=== PATIENT | male | born 1945 | race Caucasian/White ===

== ENCOUNTER 2016-06-13 15:43 | Emergency (ER) | payer MEDICARE, OTHER ==
--- NOTE | ~2016-06-13 | EKG ---
PATIENT: DANIELE FINCH UNIT #: [id number] Ventricular Rate: 65 BPM Atrial Rate: 65 BPM P-R Interval: 186 ms QRS Duration: 116 ms Q-T Interval: 416 ms QTC Calculation(Bezet): 432 ms P [place]: 89 degrees Calculated R [place]: -102 degrees Calculated T [place]: 18 degrees Diagnosis Line: Normal sinus rhythm Diagnosis Line: Right ventricular hypertrophy Diagnosis Line: Poor R wave progression questionable lead position Diagnosis Line: or body habitus Diagnosis Line: Abnormal ECG Diagnosis Line: When compared with ECG of 20-MAY-2014 16:18, Diagnosis Line: Questionable change in initial forces of Lateral Diagnosis Line: leads Diagnosis Line: Nonspecific T wave abnormality has replaced Diagnosis Line: inverted T waves in Inferior leads Diagnosis Line: Confirmed by IDA ARELLANO MD ([id number]) on 06/16/2016 Diagnosis Line: 9:37:47 AM INTERPRETING MD: EILEEN GARCIA
[~2016-06-13 15:43] MED LIST: ALPRAZOLAM PO; ASPIRIN EC81 M1 PO; ASPIRIN81 M1 PO; ASPIRIN81 M2 PO; AZO BLADDER CO300 MG; BENTYL20 MG PO; COREG12.5 MG PO; DILANTIN KAPSE100 MG PO; DILANTIN PO; DOCUSATE SODIU100 MG PO; DOXYCYCLINE PO; FISH OIL 1,2001 EAC2 PO; FLEXERIL10 MG PO; IMDUR-ER30 M1 PO; IMDUR-ER30 MG PO; IMDUR30 MG PO; LACTULOSE10 G/15 M1 PO; LISINOPRIL PO; LISINOPRIL30 MG PO; LISINOPRIL5 MG PO; MULTI VITAMIN1 EACH PO; NORCO 10-325 TA1 TAB PO; OMEGA 3-6-9 11200 M1 PO; PEPCID AC20 M2 PO; PHENERGAN25 MG PO; PHENOBARB PO; PHENOBARBITAL30 M1 PO; PHENOBARBITAL32.4 MG PO; PLAVIX PO; PROTONIX; SAW PALMETTO PO; SIMVASTATIN40 MG PO; VOLTAREN75 MG PO; ZOCOR PO
[2016-06-13 15:54] LABS: BASOPHIL% 0.3 % (0-2.5); EOSINOPHIL# 0.1 X10e3 (0-0.7); EOSINOPHIL% 2.4 % (0.0-7.0); HEMATOCRIT 40.2 % (38.0-50.0); HEMOGLOBIN 13.5 gm/dL (13.0-16.0); LYMPHOCYTE# 1.3 X10e3 (1.0-3.5); LYMPHOCYTE% 26.6 % (17.0-45.0); MEAN CELL VOLUME 94.8 FL (83-96); MEAN CORPUSCULAR HEMOGLOBIN 31.9 PG (28-34); MEAN CORPUSCULAR HGB CONC 33.6 g/dL (30-36); MEAN PLATELET VOLUME 8.6 FL (6.5-11.5); MONOCYTE# 0.4 X10e3 (0-1.0); MONOCYTE% 8.1 % (3.0-12.0); NEUTROPHIL# 3.1 X10e3 (1.5-7.1); NEUTROPHIL% 62.6 % (40-75); PLATELET COUNT 159 X10e3 (140-420); RED BLOOD COUNT 4.24 X10e (3.90-5.60); RED CELL DISTRIBUTION WIDTH 13.5 % (11.0-15.5); WHITE BLOOD COUNT 4.9 X10e3 (4.0-10.5)
[2016-06-13 15:57] LABS: DIFF IND NO
[2016-06-13 15:58] LABS: URINE SOURCE CLEAN CATCH
[2016-06-13 16:00] LABS: URINE APPEARANCE CLEAR; URINE BILIRUBIN NEG (NEG); URINE BLOOD NEG (NEG); URINE COLOR YELLOW; URINE GLUCOSE NEG (NORM); URINE KETONE NEG (NEG); URINE LEUKOCYTE ESTERASE NEG (NEG); URINE NITRATE NEG (NEG); URINE PROTEIN NEG (NEG); URINE SPECIFIC GRAVITY <=1.005 (1.003-1.035); URINE UROBILINOGEN 0.2 MG/DL (NORM)
[2016-06-13 16:01] LABS: MICRO INDICATED? NO
[2016-06-13 16:05] LABS: POC - CKMB 1.2 ng/mL (0.0-7.9); POC - TROPONIN <0.05 ng/mL (<=0.05)
[2016-06-13 16:11] LABS: ALBUMIN SERUM 3.7 g/dL (3.5-5.0); ALKALINE PHOSPHATASE 112 U/L (32-92); ALT (SGPT) 16 U/L (10-40); AMYLASE 30 U/L (0-46); AST (SGOT) 19 U/L (10-42); BILIRUBIN,TOTAL 0.4 mg/dL (0.2-2.0); BLOOD UREA NITROGEN 15 mg/dL (9-23); BUN/CREATININE RATIO 18.75; CALCIUM SERUM 8.7 mg/dL (8.4-10.2); CARBON DIOXIDE 28 mmol/L (22-31); CHLORIDE 107 mmol/L (100-111); CREATININE SERUM 0.8 mg/dL (0.6-1.4); GLOM FILT RATE Estimated 91.8 mL/min (>60); GLUCOSE FASTING 121 mg/dL (70-110); LIPASE 30 U/L (22-51); MAGNESIUM 1.9 mg/dL (1.6-3.0); POTASSIUM 3.6 mmol/L (3.5-5.1); PROTEIN TOTAL SERUM 6.6 g/dL (6.0-8.3); SODIUM 141 mmol/L (135-145)
[2016-06-13 16:15] LABS: BILIRUBIN, DIRECT <0.1 mg/dL (0.0-0.2); BILIRUBIN,INDIRECT 0.3 mg/dL (0.0-0.9)
== END 2016-06-13 16:52 | disposition home or self-care (01) ==
LOC: SED 15:43
PROVIDERS: Emergency Medicine
DX: R19.7 Diarrhea, unspecified (principal); R11.0 Nausea; K21.9 Gastro-esophageal reflux disease without esophagitis; Z87.442 Personal history of urinary calculi; Z79.82 Long term (current) use of aspirin; Z79.899 Other long term (current) drug therapy; Z88.1 Allergy status to other antibiotic agents; Z88.2 Allergy status to sulfonamides
CPT/HCPCS: 36415; 80048; 80076; 81003; 82150; 82553; 83690; 83735; 84484; 85025; 93005; 96374; 96375; 99284; J2405

== ENCOUNTER 2016-06-30 15:13 | Emergency (ER) | payer MEDICARE, OTHER ==
[2016-06-30] MEDS ORDERED: ZOFRANODT (15:19)
[2016-06-30 15:56] LABS: MICRO INDICATED? NO; URINE APPEARANCE CLEAR; URINE BILIRUBIN NEG (NEG); URINE BLOOD NEG (NEG); URINE COLOR YELLOW; URINE GLUCOSE NEG (NORM); URINE KETONE NEG (NEG); URINE LEUKOCYTE ESTERASE NEG (NEG); URINE NITRATE NEG (NEG); URINE PROTEIN NEG (NEG); URINE SOURCE CLEAN CATCH; URINE SPECIFIC GRAVITY <=1.005 (1.003-1.035); URINE UROBILINOGEN 0.2 MG/DL (NORM)
== END 2016-06-30 16:11 | disposition home or self-care (01) ==
LOC: SED 15:13
PROVIDERS: Physician Assistant
DX: R36.1 Hematospermia (principal); N40.0 Benign prostatic hyperplasia without lower urinary tract symptoms; I10 Essential (primary) hypertension; F41.9 Anxiety disorder, unspecified; Z87.891 Personal history of nicotine dependence; Z88.1 Allergy status to other antibiotic agents; Z88.2 Allergy status to sulfonamides; Z79.899 Other long term (current) drug therapy
CPT/HCPCS: 81003; 99283

== ENCOUNTER → 2016-10-06 | Outpatient (CLI) | payer MEDICARE, OTHER ==
[~2016-10-06] MED LIST changes: +ZOFRANODT
--- NOTE | ~2016-10-06 | NM4 ---
[facility] A Service of [facility] & [facility] [place] RADIOLOGY TEXT RESULTS PATIENT: JR DANIELE FINCH LOCATION: [facility] : 49 UNIT #: [id number] AGE: [address]: Meek Cramer MD SEX: M ORDER DR: [id number] [facility] [address] [place], [place] [address] [id number] O MR#: [id number] Acc #: [id number] NAME: DANIELE FINCH : 1945 SEX: M STUDY DATE/TIME: 10/06/2016 10:33 UNIT: [facility] ROOM: STUDY DESCRIPTION: PA Bone or Joint 3 Phase Study Attending Physician: Meek Cramer M.D. Referring Physician: Meek Cramer M.D. Ordering Physician: Meek Cramer M.D. Primary Care Physician: Meek Cramer M.D. MEDICAL IMAGING REPORT This report is preliminary unless electronic signature is present EXAM Three-phase bone scan of the upper extremities (mid forearm through hands) 10/06/2016. HISTORY Order states: Cellulitis, history of right heart catheterization, right wrist pain. History sheet states: Routine heart catheterization in right medial wrist on 09/02/2016. Cath site blistered immediately after removing bandage then turned red. Right hand swelling the next day. Minor arthritis, cellulitis. COMPARISON MRI of the right hand and wrist without and with IV contrast 09/01/2016. TECHNIQUE The patient received 27.9 mCi technetium-99m MDP intravenously and vascular flow, blood pool, and delayed images were obtained of the hands, wrists and distal forearms. FINDINGS The vascular flow phase demonstrates mild right and minimal left abnormal uptake in the radial aspect of the wrist/hands bilaterally. Phase II vascular pool images demonstrate moderate right and mild left persistent uptake in the radial aspects of the wrist/hand. Delayed-phase imaging demonstrates marked right and moderate left uptake corresponding to the first carpometacarpal joint bilaterally (at least on the right when compared to the MRI of 09/01/2016). 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 Septic arthritis could have a similar scintigraphic appearance but is unlikely to STS. [facility] A Service of [facility] & [facility] [place] RADIOLOGY TEXT RESULTS PATIENT: JR DANIELE FINCH [id number] [birth year] UNIT #: [id number] AGE: [address]: Meek Cramer MD SEX: M ORDER DR: be bilateral. There is mild right and minimal left generalized wrist uptake. On the right, this corresponds with additional minimal arthritic changes in the wrist. IMPRESSION 1. Positive three-phase bone scan of both wrists/hands, right greater than left with predominant abnormal uptake in the first carpometacarpal joints bilaterally. 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 There is generalized mild bilateral wrist uptake, which on the right corresponds with additional mild arthritic change by MRI. 2. Positive three-phase bone scans are nonspecific and can also be seen in the setting of infection. This can likely be excluded clinically and would be unlikely to be bilateral. The scintigraphic pattern is not specifically suggestive of reflex sympathetic dystrophy (complex regional pain syndrome). Dictated by... Elizabeth Bain M.D. THIS IS AN ELECTRONICALLY VERIFIED REPORT Elizabeth Bain M.D. at 10/13/2016 11:25 AM AMY/kaylee TD: 10/08/2016 13:13 JOB #: [id number] MEDICAL IMAGING REPORT Page 1 of 1 COPY
== END | disposition home or self-care (01) ==
LOC: CNUC 09:48
DX: M25.531 Pain in right wrist (principal); R93.7 Abnormal findings on diagnostic imaging of other parts of musculoskeletal system; L03.90 Cellulitis, unspecified; Z98.890 Other specified postprocedural states
CPT/HCPCS: 78315; A9503